=== PATIENT | male | born 1940 | race African-American/Black ===

== ENCOUNTER → 2017-07-06 | Outpatient (CLI) | payer MEDICARE, OTHER ==
[2017-07-06 11:17] LABS: BASO % 0 % (0-3); EOS # 0.3 x10^3/uL (0.0-0.7); EOS % 9 % (0-3); HEMATOCRIT 44.6 % (39.0-53.0); LYMPH # 1.4 x10^3/uL (1.0-4.8); LYMPH % 48 % (24-48); MEAN CORPUSCULAR HEMOGLOBIN 31 pg (25-35); MEAN CORPUSCULAR HGB CONC 34 g/dL (31-37); MEAN CORPUSCULAR VOLUME 93 fL (79-100); MONO # 0.4 x10^3/uL (0.0-1.1); MONO % 12 % (0-9); NEUT # 0.9 x10^3uL (1.8-7.7); NEUT % 31 % (31-73); PLATELET COUNT 161 x10^3/uL (140-400); RED BLOOD COUNT 4.81 x10^6/uL (4.30-5.70); RED CELL DISTRIBUTION WIDTH 13.9 % (11.5-14.5)
[2017-07-06 11:24] LABS: ALBUMIN 3.5 g/dL (3.4-5.0); CREATININE 1.2 mg/dL (0.7-1.3); POTASSIUM 4.7 mmol/L (3.5-5.1); TOTAL BILIRUBIN 1.2 mg/dL (0.2-1.0); TOTAL PROTEIN 7.1 g/dL (6.4-8.2)
[2017-07-06 11:55] LABS: PLT ESTIMATE ADEQUATE (ADEQUATE)
[2017-07-07 03:12] LABS: HEMOGLOBIN A1C 5.6 % (4.8-5.6)
== END | disposition home or self-care (01) ==
LOC: LAB 10:22
PROVIDERS: ATTEND General Practice
DX: Z12.5 Encounter for screening for malignant neoplasm of prostate (principal); E55.9 Vitamin D deficiency, unspecified; R79.89 Other specified abnormal findings of blood chemistry
CPT/HCPCS: 36415; 80053; 80061; 82306; 83036; 85025; G0103

== ENCOUNTER → 2017-08-24 | Outpatient (CLI) | payer MEDICARE, OTHER ==
--- NOTE | 2017-08-24 11:12 | RAD ---
INDICATION: Intermittent right knee pain. TECHNIQUE: 3 views of the right knee are submitted for review. No comparison is available. FINDINGS: There is no fracture or dislocation. There is a small suprapatellar joint effusion. There is no soft tissue swelling. There is tricompartmental spurring which is greatest in the medial compartment. There is narrowing of the medial compartment which is moderate to severe and of the lateral compartment which is moderate. 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 Electronically signed by: Salvador Reed MD (08/24/2017 11:09 AM) [facility]
== END | disposition home or self-care (01) ==
LOC: DXRAD 10:30
PROVIDERS: ATTEND General Practice
DX: M17.11 Unilateral primary osteoarthritis, right knee (principal); M25.461 Effusion, right knee; E55.9 Vitamin D deficiency, unspecified
CPT/HCPCS: 73562

== ENCOUNTER → 2018-08-05 | Outpatient (CLI) | payer MEDICARE, OTHER | END | disposition home or self-care (01) | LOC: LAB 11:00 | PROVIDERS: ATTEND Urology | DX: C61 Malignant neoplasm of prostate (principal) | CPT/HCPCS: 84153; G0103 ==

== ENCOUNTER → 2019-12-26 | Outpatient (CLI) | payer MEDICARE, OTHER ==
--- NOTE | 2019-12-26 09:18 | RAD ---
EXAM: RIGHT UPPER QUADRANT ULTRASOUND. HISTORY: Right upper quadrant pain. COMPARISON: None. FINDINGS: Sonographic evaluation of the right upper quadrant was performed. The liver appears normal in parenchymal echotexture. There are no focal lesions. The gallbladder is unremarkable without evidence of stones, wall thickening or pericholecystic fluid. There is no sonographic Santiago sign. The common duct measures 1.3 mm. The visualized portions of the head of the pancreas reveal no abnormality. The right kidney measures 9.6 cm. Cortical thickness and echogenicity are preserved. There is no hydronephrosis. The visualized portions of the abdominal aorta and inferior vena cava are grossly patent and normal in caliber. IMPRESSION: 1. No cause for pain is identified sonographically. Electronically signed by: Casi Lunsford MD (12/26/2019 9:15 AM) [id number]
== END ==
LOC: US 07:34
PROVIDERS: ATTEND Family Medicine
DX: R10.11 Right upper quadrant pain (principal)
CPT/HCPCS: 76705

== ENCOUNTER 2020-01-25 17:22 | Emergency (ER) | payer MEDICARE, OTHER ==
[~2020-01-25] VITALS: Ht 182.9 cm; Wt 75.0 kg
--- NOTE | 2020-01-25 18:01 | PHYS DOC ---
Past History Past Medical History: Hypertension Past Surgical History: Appendectomy, Tonsillectomy, Other Additional Past Surgical Histo: Prostate Alcohol Use: Rarely General Adult EDM: Chief Complaint: HYPERTENSION HPI: HPI: Patient is a 80 year male presents hypertension. Patient states he was pumping gas and when he got out of his vehicle he felt really dizzy. Patient went home and checked his blood pressure and it was 207/90. Patient denies dizziness at this time. Review of Systems: Review of Systems: Constitutional: Denies fever or chills Eyes: Denies change in visual acuity HENT: Denies nasal congestion or sore throat Respiratory: Denies cough or shortness of breath Cardiovascular: Denies chest pain or edema GI: Denies abdominal pain, nausea, vomiting, bloody stools or diarrhea : Denies dysuria Musculoskeletal: Denies back pain or joint pain Integument: Denies rash Neurologic: Denies headache, focal weakness or sensory changes Endocrine: Denies polyuria or polydipsia Lymphatic: Denies swollen glands Psychiatric: Denies depression or anxiety Physical Exam: PE: Constitutional: Well developed, well nourished, no acute distress, non-toxic appearance. [] HENT: Normocephalic, atraumatic, bilateral external ears normal, oropharynx moist, no oral exudates, nose normal. [] Eyes: PERRLA, EOMI, conjunctiva normal, no discharge. [] Neck: Normal range of motion, no tenderness, supple, no stridor. [] Cardiovascular:Heart rate regular rhythm, no murmur [] Lungs & Thorax: Bilateral breath sounds clear to auscultation [] Abdomen: Bowel sounds normal, soft, no tenderness, no masses, no pulsatile masses. [] Skin: Warm, dry, no erythema, no rash. [] Back: No tenderness, no CVA tenderness. [] Extremities: No tenderness, no cyanosis, no clubbing, ROM intact, no edema. [] Neurologic: Alert and oriented X 3, normal motor function, normal sensory function, no focal deficits noted. [] Psychologic: Affect normal, judgement normal, mood normal. [] Current Patient Data: Vital Signs: Vital Signs Date Time Temp Pulse Resp B/P (MAP) Pulse Ox O2 Delivery O2 Flow Rate FiO2 01/25/20 17:45 97.9 57 16 165/88 (113) 99 Room Air EKG: EKG: Sinus Rhythm, HR 54BPM[] Radiology/Procedures: Radiology/Procedures: []EXAM: Chest, single view. HISTORY: Dizziness. COMPARISON: None. FINDINGS: A frontal view of the chest is obtained. There is no infiltrate, pleural effusion or pneumothorax. There is a prominent cardiac silhouette, likely accentuated due to portable technique. There are calcified granulomas. IMPRESSION: No acute pulmonary finding. Electronically signed by: Yulisa Santiago MD (01/25/2020 6:25 PM) [facility] Heart Score: Risk Factors: Risk Factors: DM, Current or recent (<one month) smoker, HTN, HLP, family history of CAD, obesity. Risk Scores: Score 0 - 3: 2.5% MACE over next 6 weeks - Discharge Home Score 4 - 6: 20.3% MACE over next 6 weeks - Admit for Clinical Observation Score 7 - 10: 72.7% MACE over next 6 weeks - Early Invasive Strategies Course & Med Decision Making: Course & Med Decision Making Pertinent Labs and Imaging studies reviewed. (See chart for details) [] Dragon Disclaimer: Dragon Disclaimer: This electronic medical record was generated, in whole or in part, using a voice recognition dictation system. Departure Departure: Impression: Primary Impression: Hypertension Qualified Codes: I10 - Essential (primary) hypertension Disposition: 01 DC HOME SELF CARE/HOMELESS Condition: GOOD Referrals: GRETEL PEACE MD (PCP) Patient Instructions: Hypertension, [id number] JONO CAMPOS APRN Jan 25, 2020 18:01
--- NOTE | 2020-01-25 18:02 | EKG ---
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
--- NOTE | 2020-01-25 18:27 | RAD ---
EXAM: Chest, single view. HISTORY: Dizziness. COMPARISON: None. FINDINGS: A frontal view of the chest is obtained. There is no infiltrate, pleural effusion or pneumo thorax. There is a prominent cardiac silhouette, likely accentuated due to portable technique. There are calcified granulomas. IMPRESSION: No acute pulmonary finding. Electronically signed by: Yulisa Santiago MD (01/25/2020 6:25 PM) [facility]
[2020-01-25 18:43] LABS: BASO % 0 % (0-3); EOS # 0.2 x10^3/uL (0.0-0.7); EOS % 7 % (0-3); HEMATOCRIT 38.9 % (39.0-53.0); LYMPH # 1.2 x10^3/uL (1.0-4.8); LYMPH % 44 % (24-48); MEAN CORPUSCULAR HEMOGLOBIN 32 pg (25-35); MEAN CORPUSCULAR HGB CONC 33 g/dL (31-37); MEAN CORPUSCULAR VOLUME 94 fL (79-100); MONO # 0.5 x10^3/uL (0.0-1.1); MONO % 17 % (0-9); NEUT # 0.9 x10^3uL (1.8-7.7); NEUT % 31 % (31-73); PLATELET COUNT 176 x10^3/uL (140-400); RED BLOOD COUNT 4.13 x10^6/uL (4.30-5.70); RED CELL DISTRIBUTION WIDTH 13.5 % (11.5-14.5); WHITE BLOOD COUNT 2.8 x10^3/uL (4.0-11.0)
[2020-01-25 18:49] LABS: CREATININE 1.1 mg/dL (0.7-1.3); GFR 77.9; POTASSIUM 4.5 mmol/L (3.5-5.1)
[2020-01-25 18:55] LABS: ALBUMIN 3.3 g/dL (3.4-5.0); ALBUMIN/GLOBULIN RATIO 1.1 (1.0-1.7); TOTAL BILIRUBIN 0.9 mg/dL (0.2-1.0); TOTAL PROTEIN 6.3 g/dL (6.4-8.2)
[2020-01-25 19:28] LABS: % EOS 7 % (0-5); % LYMPHS 46 % (24-48); % MONOS 18 % (0-10); % SEGS 29 % (35-66); PLT ESTIMATE ADEQUATE (ADEQUATE)
[2020-01-25] MEDS ORDERED: IV NORMAL SALINE 1,000ML 1,000 ML IV ONE (19:30)
[2020-01-25 20:05] LABS: BARBITURATES NEG (NEG); BENZODIAZEPINES NEG (NEG); CANNABINOIDS NEG (NEG); COCAINE NEG (NEG); METHADONE NEG (NEG); OPIATES NEG (NEG); PHENCYCLIDINE NEG (NEG)
[2020-01-25 20:07] LABS: AMPHETAMINE/METHAMPHETAMINE NEG (NEG)
[2020-01-25 20:12] LABS: BACTERIA,URINE 0 /HPF (0-FEW); BILIRUBIN,URINE NEG (NEG); CLARITY,URINE CLEAR; COLOR,URINE YELLOW; GLUCOSE,URINE NEG (NEG); NITRITE,URINE NEG (NEG); RBC,URINE 0 /HPF (0-2); UROBILINOGEN,URINE 0.2 mg/dL (0.2 mg/dL); WBC,URINE 0 /HPF (0-4)
[2020-01-25 20:58] VITALS: BP 148/77
== END 2020-01-25 21:11 | disposition home or self-care (01) ==
LOC: ER 17:22
DX: I10 Essential (primary) hypertension (principal); R42 Dizziness and giddiness; Z90.89 Acquired absence of other organs; Z98.890 Other specified postprocedural states
CPT/HCPCS: 36415; 71045; 80053; 80307; 81001; 85007; 85025; 93005; 96360; 99285; J7030

== ENCOUNTER → 2020-02-21 | Outpatient (CLI) | payer MEDICARE, OTHER ==
[2020-01-25 20:58] VITALS: BP 148/77
--- NOTE | 2020-02-22 09:29 | RAD ---
US RENAL ARTERY DUPLEX: 02/21/2020 8:42 AM Indication: 80 years old Male. Essential hypertension Comparison: None. FINDINGS: Sonographic evaluation of the kidneys is performed utilizing grayscale, color Doppler and s pectral waveform analysis. Right kidney: Size: 7.6 x 4.3 x 4.3cm. Collecting System: No hydronephrosis. No renal calculi detected. Parenchyma: Normal echotexture and morphology. No focal contour deforming renal mass. Left kidney: Size: 8.8 x 5.4 x 6.1cm. Collecting System: No hydronephrosis. No renal calculi detected. Parenchyma: Normal echotexture and morphology. No focal contour deforming renal mass. Urinary bladder: Unremarkable. Mid aorta measures 1.5 cm. Aorta peak systolic velocity: 124.5 cm/s Right renal artery: Proximal 63.4 cm/s; middle, 110 cm/s; distal 52.1 cm/s Right renal artery: Resistive indices range from 0.59-0.67 Right renal artery to aorta ratio: 0.79 Left renal artery: Proximal 65.2 cm/s; middle 90.9 cm/s; distal 98.2 cm/s. Left renal artery: Resistive indices range from 0.69-0.72 Left renal artery to aorta ratio: 0.88 Renal veins are patent bilaterally. IMPRESSION: No sonographic evidence for obstructive uropathy. No hemodynamically significant stenosis involving t he renal arteries. Electronically signed by: Lucy Peña MD (02/22/2020 9:26 AM) [id number]
== END ==
LOC: US 08:20
PROVIDERS: ATTEND Family Medicine
DX: I10 Essential (primary) hypertension (principal)
CPT/HCPCS: 93975

== ENCOUNTER 2020-02-23 11:16 | Inpatient (IN) | payer MEDICARE, OTHER ==
[~2020-02-23] VITALS: Ht 182.9 cm; Wt 73.4 kg
--- NOTE | 2020-02-23 11:46 | PHYS DOC ---
Past History Past Medical History: Hypertension Past Surgical History: Appendectomy, Tonsillectomy, Other Additional Past Surgical Histo: Prostate Alcohol Use: Rarely Additional Alcohol Information: 1-2 BEER/WEEK General Adult EDM: Chief Complaint: CHEST PAIN HPI: HPI: 80-year-old gentleman presenting the emergency department today after being seen in clinic and sent here. He had some palpitations last night around 2:00 that lasted for about an hour. His palpitations improved spontaneously. He was seen in clinic today for evaluation. They did an EKG which he brings with him today shows sinus rhythm with a mildly bradycardic rate. He has some ST segment elevation in the anterior leads which is concave upwards reassuring and not suggestive of acute ischemia. Here the patient denies any chest pain. He does have chronic low back pain. Currently he does not have any pain or pressure. HEART SCORE History Slightly suspicious 0 Moderately suspicious +1 Highly suspicious +2 EKG 1 point: No ST depression but LBBB, LVH, repolarization changes (ex: digoxin); 2 points: ST depression/elevation not due to LBBB, LVH, or digoxin Normal 0 Non-specific repolarization disturbance +[address] depression +2 Age <45 0 45-65 +1 65 +2 Risk factors Risk factors: HTN, hypercholesterolemia, DM, obesity (BMI >30 kg/m), smoking (current, or smoking cessation 3 mo), positive family history (parent or sibling with CVD before age 65); atherosclerotic disease: prior AL, PCI/CABG, CVA/TIA, or peripheral arterial disease No known risk factors 0 1-2 risk factors +1 3 risk factors or history of atherosclerotic disease +2 Initial troponin Use local assays and corresponding cutoffs normal limit 0 1-2 normal limit +1 >2 normal limit +2 Total 4 points Review of systems is negative for nausea vomiting diaphoresis fevers chills cough. All other review of systems negative. ED course: 80-year-old male presenting with palpitations last night and then an abnormal EKG in clinic. On arrival EKG obtained here which shows sinus rhythm with a regular rate. ST segments here are congruent. Not suggestive of acute ischemia. Blood test sent. Chest x-ray ordered. Chest x-ray unremarkable. Blood work unremarkable. Troponin within normal limits. Patient remains chest pain-free at this time. Will admit the patient for cardiac monitoring telemetry further evaluation treatment and care including cardiology consultation and possibly an echocardiogram. I spoke to Dr. Tavares who accepts patient for admission. Allergies: Allergies: Allergies Coded Allergies Type Severity Reaction Last Updated Verified No Known Drug Allergies 01/25/20 No Physical Exam: PE: Constitutional: Well developed, well nourished, no acute distress, non-toxic appearance. [] HENT: Normocephalic, atraumatic, bilateral external ears normal, oropharynx moist, no oral exudates, nose normal. [] Eyes: PERRLA, EOMI, conjunctiva normal, no discharge. [] Neck: Normal range of motion, no tenderness, supple, no stridor. [] Cardiovascular: reg rate regular rhythm, no murmur [] Lungs & Thorax: Bilateral breath sounds clear to auscultation [] Abdomen: Bowel sounds normal, soft, no tenderness, no masses, no pulsatile masses. [] Skin: Warm, dry, no erythema, no rash. [] Back: No tenderness, no CVA tenderness. [] Extremities: No tenderness, no cyanosis, no clubbing, ROM intact, no edema. [] Neurologic: Alert and oriented X 3, normal motor function, normal sensory function, no focal deficits noted. [] Psychologic: Affect normal, judgement normal, mood normal. [] Current Patient Data: Vital Signs: Vital Signs Date Time Temp Pulse Resp B/P (MAP) Pulse Ox O2 Delivery O2 Flow Rate FiO2 02/23/20 11:20 98.1 69 15 169/89 (115) EKG: EKG: [] Radiology/Procedures: Radiology/Procedures: [] Heart Score: Risk Factors: Risk Factors: DM, Current or recent (<one month) smoker, HTN, HLP, family history of CAD, obesity. Risk Scores: Score 0 - 3: 2.5% MACE over next 6 weeks - Discharge Home Score 4 - 6: 20.3% MACE over next 6 weeks - Admit for Clinical Observation Score 7 - 10: 72.7% MACE over next 6 weeks - Early Invasive Strategies Course & Med Decision Making: Course & Med Decision Making Pertinent Labs and Imaging studies reviewed. (See chart for details) [] Dragon Disclaimer: Dragon Disclaimer: This electronic medical record was generated, in whole or in part, using a voice recognition dictation system. Departure Departure: Impression: Primary Impression: Palpitations Disposition: ADMITTED INPT THIS HOSP Admitting Physician: Dennise Tavares Condition: STABLE Referrals: GRETEL PEACE MD (PCP) RAHUL ZIMMERMAN MD Feb 23, 2020 11:45
[2020-02-23 12:11] LABS: BASO % 1 % (0-3); EOS # 0.2 x10^3/uL (0.0-0.7); EOS % 6 % (0-3); HEMATOCRIT 42.2 % (39.0-53.0); HEMOGLOBIN 14.2 g/dL (13.0-17.5); LYMPH # 1.2 x10^3/uL (1.0-4.8); LYMPH % 45 % (24-48); MEAN CORPUSCULAR HEMOGLOBIN 31 pg (25-35); MEAN CORPUSCULAR HGB CONC 34 g/dL (31-37); MEAN CORPUSCULAR VOLUME 92 fL (79-100); MONO # 0.5 x10^3/uL (0.0-1.1); MONO % 19 % (0-9); NEUT # 0.8 x10^3uL (1.8-7.7); NEUT % 29 % (31-73); PLATELET COUNT 199 x10^3/uL (140-400); RED BLOOD COUNT 4.58 x10^6/uL (4.30-5.70); RED CELL DISTRIBUTION WIDTH 13.3 % (11.5-14.5); WHITE BLOOD COUNT 2.7 x10^3/uL (4.0-11.0)
--- NOTE | 2020-02-23 12:16 | RAD ---
XR CHEST 1V Clinical Indication: Reason: chest pain / Spl. Instructions: / History: Comparison: AP chest, January 25, 2020. Findings: The cardiomediastinal silhouette is normal. Lungs are clear. There is no pneumothorax. No pleural eff usion is appreciated. No acute bone abnormality. IMPRESSION: No acute cardiopulmonary process. Electronically signed by: Roni Langley MD (02/23/2020 12:14 PM) [id number]
[2020-02-23 12:23] LABS: CALCIUM 9.2 mg/dL (8.5-10.1); POTASSIUM 4.3 mmol/L (3.5-5.1)
[2020-02-23 12:28] LABS: ALBUMIN 3.3 g/dL (3.4-5.0); DIRECT BILIRUBIN 0.2 mg/dL (0.0-0.2); TOTAL BILIRUBIN 0.7 mg/dL (0.2-1.0); TOTAL PROTEIN 6.7 g/dL (6.4-8.2)
[2020-02-23] MEDS ORDERED: IV NORMAL SALINE 1,000ML 1,000 ML IV SCH (13:00)
--- NOTE | 2020-02-23 14:40 | EKG ---
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
[2020-02-23 15:10] VITALS: BP 136/82
--- NOTE | 2020-02-23 15:37 | NUR ---
ADMIT NOTE-PT ARRIVES VIA EMS WITH NO O2 OR NEED FOR DEVICE. HE AMBULATES FROM COT IN HALLWAY TO BED IN ROOM UNASSISTED. VSS, TELEMETRY APPLIED. HISTORY OBTAINED. PT DENIES ANY HOME MEDICATIONS, NO KNOWN ALLERGIES AT THIS TIME.
--- NOTE | 2020-02-23 16:00 | HP ---
ADMIT DATE: 02/23/2020 HISTORY OF PRESENT ILLNESS: The patient is an 80-year-old -[place] male patient who was seen in the Emergency Department after being seen in the clinic by his primary care physician. He had some palpitations last night around 2:00 that lasted for almost an hour. His palpitations improved spontaneously. He was seen in the clinic today for evaluation and had had an EKG done, which showed that he has ST segment elevation that showed that he is mildly bradycardic. He has some ST segment elevation in the anterior leads, which is concave, upward, reassuring not suggestive of acute ischemia. He denied any chest pain. He does have chronic low back pain; however, by the time he arrived to the Emergency Room, he has no palpitation, no chest pain or pressure or shortness of breath. He was evaluated in the Emergency Room, has another EKG done and again has had lab work done, which showed that he has first set of cardiac enzyme was less than 0.017 and was admitted for further evaluation and treatment. PAST MEDICAL HISTORY: Significant for hypertension, hyperlipidemia and prostate cancer. PAST SURGICAL HISTORY: Significant for colonoscopy. ALLERGIES: No known drug allergies. MEDICATIONS: He is currently on no medication. FAMILY HISTORY: He has 2 brothers, all younger and apparently healthy. His father at the age of 95 because of bladder cancer. Mother at the age of 95 because of diabetes and congestive heart failure. SOCIAL HISTORY: He is . He has 2 boys and 1 daughter. He quit smoking 40 years ago. Does drink alcohol, 2 beers a week and a shot of whiskey on the weekend. Does not use any illicit drugs. 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 He is a . REVIEW OF SYSTEMS: The patient denied any blurring of vision, cataract, glaucoma or macular degeneration. Denied any earache, tinnitus or sensorineural deafness. Denied any nosebleeds, stuffy nose or postnasal drip. Denied any sore throat, sore tongue, toothache, hoarseness of voice or difficulty swallowing. Denied any nausea, vomiting, diarrhea or constipation. Denied any hematemesis, melena, or hematochezia. Did complain of nocturia, but denied any dysuria or hematuria. Denied any chest pain. Did complain of palpitations. According to him, this palpitation has been on and off for years, but was the longest. PHYSICAL EXAMINATION: GENERAL: On arrival to the Emergency Room, he looked well and was in no apparent distress. His palpitations have subsided. Has no chest pain or shortness of breath. On examining him, there was no pallor, jaundice, cyanosis or thyromegaly. No jugular venous distention. No lower limb edema. VITAL SIGNS: His heart rate was 74, blood pressure was 136/82, temperature was 98.8, respiratory rate was 20, and oxygen saturation was 94%. HEAD, EYES, EARS, NOSE AND THROAT: Normocephalic, atraumatic. NECK: Supple. HEART: Showed normal first and second heart sounds. No gallop or murmur. CHEST: Clear to auscultation. No crepitation or rhonchi. ABDOMEN: Distended, soft, nontender. NEUROLOGIC: He was grossly intact. LABORATORY DATA: Showed a white cell count of 2700, hemoglobin 14, hematocrit 42, MCV 92, and a platelet count of 199,000 with a manual differential showed 29% polymorphs, 45% lymphocytes, and 19% monocytes. His serum sodium was 130, potassium 4.3, chloride 97, bicarbonate 27, anion gap of 6, BUN 14, creatinine 1, estimated GFR was 87 mL per minute. His glucose was 97, calcium was 9.2, magnesium was 1.9. Total bilirubin, AST, ALT, alkaline phosphatase were normal. Total protein 6.7, albumin 3.3 and first set of troponin was less than 0.017. ASSESSMENT AND PLAN: The patient will be monitored on a telemetry bed. We will do 2 more sets of cardiac enzyme. We will check his thyroid function test and consult Cardiology team to evaluate further. JIGNESH MESSER MD DR: KATRINA/alessio JOB#: [id number] / [id number]
[2020-02-23 17:03] VITALS: BP 151/74
[2020-02-23 23:56] VITALS: BP 138/74
[2020-02-24 05:56] VITALS: BP 127/68
[2020-02-24 07:13] LABS: BASO % 1 % (0-3); CALCIUM 8.7 mg/dL (8.5-10.1); EOS # 0.2 x10^3/uL (0.0-0.7); EOS % 8 % (0-3); LYMPH # 1.4 x10^3/uL (1.0-4.8); LYMPH % 49 % (24-48); MEAN CORPUSCULAR HEMOGLOBIN 31 pg (25-35); MEAN CORPUSCULAR HGB CONC 33 g/dL (31-37); MEAN CORPUSCULAR VOLUME 93 fL (79-100); MONO # 0.4 x10^3/uL (0.0-1.1); MONO % 16 % (0-9); NEUT # 0.7 x10^3uL (1.8-7.7); NEUT % 27 % (31-73); PLATELET COUNT 194 x10^3/uL (140-400); POTASSIUM 4.2 mmol/L (3.5-5.1); RED BLOOD COUNT 4.53 x10^6/uL (4.30-5.70); RED CELL DISTRIBUTION WIDTH 13.5 % (11.5-14.5); WHITE BLOOD COUNT 2.8 x10^3/uL (4.0-11.0)
[2020-02-24 08:02] LABS: % EOS 8 % (0-5); % LYMPHS 50 % (24-48); % MONOS 14 % (0-10); % SEGS 28 % (35-66)
[2020-02-24 08:03] LABS: PLT ESTIMATE ADEQUATE (ADEQUATE)
[2020-02-24 10:57] VITALS: BP 137/77
[2020-02-24 12:11] LABS: THYROID STIM HORMONE (TSH) 2.005 uIU/mL (0.358-3.740)
--- NOTE | 2020-02-24 12:51 | DS ---
DATE OF DISCHARGE: 02/24/2020 HOSPITAL COURSE: The patient is an 80-year-old male patient who was admitted with complaint of palpitations and apparently, he was awakened around 2:00 in the morning and palpitations episode lasted for almost an hour. He was seen at his primary care physician from there, he was referred to [facility] Emergency Room, where he was extensively investigated and has had EKG showed no abnormality. He was monitored on a telemetry bed and has had 3 sets of cardiac enzymes, all showed troponin to be less than 0.017 and acute myocardial infarction was ruled out. His thyroid function test was normal at 2.005. Serum triglycerides were 36, total cholesterol 207, LDL cholesterol 111, VLDL was 17, HDL cholesterol was 89 and the ratio was 2. PHYSICAL EXAMINATION: GENERAL: When I saw him this afternoon, he looked well and was clearly in no apparent distress. He denied any further episodes of palpitations. No arrhythmias were seen on the monitor and the patient remained chest pain free. Denied any shortness of breath. When I examined him, he looked well and was clearly in no apparent respiratory distress. No pallor, jaundice, cyanosis or thyromegaly. No jugular venous distention or limb edema. VITAL SIGNS: Her heart rate was 70, blood pressure was 137/77, temperature was 97.7, respiratory rate 20, and oxygen saturation was 100% on room air. HEAD, EYES, EARS, NOSE AND THROAT: Showed normocephalic, atraumatic. NECK: Supple. HEART: Showed normal first and second heart sounds. No gallop, rub or murmur. CHEST: Clear to auscultation. No crepitation or rhonchi. ABDOMEN: Distended, soft, nontender. NEUROLOGIC: He was grossly intact. DISCHARGE MEDICATIONS: The patient was discharged home with a plan for him to have an outpatient echocardiogram and a quality assurance monitor body as an outpatient. FINAL DISCHARGE DIAGNOSES: 1. Palpitations. 2. Hypertension. JIGNESH MESSER MD DR: KATRINA/alessio JOB#: [id number] / [id number]
--- NOTE | 2020-02-24 15:43 | PDOC2 ---
CONSULT DOS: DATE: 02/24/20 TIME: 15:36 Reason for Consult: Palpitations Referring Physician: Dr. Tavares Chief Complaint Palpitations Source: Chart review, Patient Problem List Problems Medical Problems: (1) Palpitations Status: Acute History of Present Illness 80-year-old male was initially seen by PCP secondary to intermittent episodes of palpitations and was sent to ED for an abnormal EKG that showed questionable ST elevations. Patient stated that his palpitations have been going on since past 1 year. They usually last a few seconds to minutes. However, since the last few weeks, they have been more frequent and being lasting for an hour. His symptoms are worse during the night. He denied any chest pain, orthopnea/PND, syncope. He denied any excessive caffeine or energy drinks intake. Past Medical History Hypertension Hyperlipidemia Prostate cancer Past Surgical History Colonoscopy Family History Negative for premature coronary disease Social History Patient admitted to social intake of alcohol but denied any smoking or drug abuse. Current Medications Current Medications Sodium Chloride 1,000 ml @ 85 mls/hr [id number] IV Last administered on 02/23/20at 13:17; Start 02/23/20 at 13:00; Stop 02/23/20 at 16:59; Status DC Active Scripts Active No Active Prescriptions or Reported Medications Allergies: Coded Allergies: No Known Drug Allergies (Unverified , 01/25/20) PSYCHOLOGICAL ROS: No: Hallucinations Eyes: No: Loss of vision HEENT: No: Epistaxis Respiratory: No: Hemoptysis, Shortness of breath Cardiovascular: yes: Palpitations; No: Chest Pain Gastrointestinal: No: Vomiting Neurological: No: Seizures Skin: No: Rash General: Alert, Oriented X3 HEENT: Atraumatic Lungs: Clear to auscultation Heart: Regular rate Abdomen: Normal bowel sounds, Soft Extremities: No edema Neuro: Normal speech Psych/Mental Status: Mood NL VITALS Vital Signs Date Time Temp Pulse Resp B/P (MAP) Pulse Ox O2 Delivery O2 Flow Rate FiO2 02/24/20 10:57 97.7 70 20 137/77 (97) 100 Room Air Labs Laboratory Tests Test 02/23/20 11:42 02/23/20 15:05 02/23/20 17:45 02/24/20 06:25 White Blood Count 2.7 x10^3/uL (4.0-11.0) 2.8 x10^3/uL (4.0-11.0) Red Blood Count 4.58 x10^6/uL (4.30-5.70) 4.53 x10^6/uL (4.30-5.70) Hemoglobin 14.2 g/dL (13.0-17.5) 14.0 g/dL (13.0-17.5) Hematocrit 42.2 % (39.0-53.0) 42.0 % (39.0-53.0) Mean Corpuscular Volume 92 fL (79-100) 93 fL (79-100) Mean Corpuscular Hemoglobin 31 pg (25-35) 31 pg (25-35) Mean Corpuscular Hemoglobin Concent 34 g/dL (31-37) 33 g/dL (31-37) Red Cell Distribution Width 13.3 % (11.5-14.5) 13.5 % (11.5-14.5) Platelet Count 199 x10^3/uL (140-400) 194 x10^3/uL (140-400) Neutrophils (%) (Auto) 29 % (31-73) 27 % (31-73) Lymphocytes (%) (Auto) 45 % (24-48) 49 % (24-48) Monocytes (%) (Auto) 19 % (0-9) 16 % (0-9) Eosinophils (%) (Auto) 6 % (0-3) 8 % (0-3) Basophils (%) (Auto) 1 % (0-3) 1 % (0-3) Neutrophils # (Auto) 0.8 x10^3uL (1.8-7.7) 0.7 x10^3uL (1.8-7.7) Lymphocytes # (Auto) 1.2 x10^3/uL (1.0-4.8) 1.4 x10^3/uL (1.0-4.8) Monocytes # (Auto) 0.5 x10^3/uL (0.0-1.1) 0.4 x10^3/uL (0.0-1.1) Eosinophils # (Auto) 0.2 x10^3/uL (0.0-0.7) 0.2 x10^3/uL (0.0-0.7) Basophils # (Auto) 0.0 x10^3/uL (0.0-0.2) 0.0 x10^3/uL (0.0-0.2) Sodium Level 130 mmol/L (136-145) 134 mmol/L (136-145) Potassium Level 4.3 mmol/L (3.5-5.1) 4.2 mmol/L (3.5-5.1) Chloride Level 97 mmol/L (98-107) 99 mmol/L (98-107) Carbon Dioxide Level 27 mmol/L (21-32) 25 mmol/L (21-32) Anion Gap 6 (6-14) 10 (6-14) Blood Urea Nitrogen 14 mg/dL (8-26) 11 mg/dL (8-26) Creatinine 1.0 mg/dL (0.7-1.3) 1.0 mg/dL (0.7-1.3) Estimated GFR (Cockcroft-Gault) 87.0 87.0 Glucose Level 97 mg/dL (70-99) 95 mg/dL (70-99) Calcium Level 9.2 mg/dL (8.5-10.1) 8.7 mg/dL (8.5-10.1) Magnesium Level 1.9 mg/dL (1.8-2.4) Total Bilirubin 0.7 mg/dL (0.2-1.0) Direct Bilirubin 0.2 mg/dL (0.0-0.2) Aspartate Amino Transf (AST/SGOT) 25 U/L (15-37) Alanine Aminotransferase (ALT/SGPT) 28 U/L (16-63) Alkaline Phosphatase 104 U/L (46-116) Troponin I Quantitative < 0.017 ng/mL (0-0.055) < 0.017 ng/mL (0-0.055) < 0.017 ng/mL (0-0.055) Total Protein 6.7 g/dL (6.4-8.2) Albumin 3.3 g/dL (3.4-5.0) Lipase 112 U/L (73-393) Segmented Neutrophils % 28 % (35-66) Lymphocytes % 50 % (24-48) Monocytes % 14 % (0-10) Eosinophils % 8 % (0-5) Platelet Estimate Adequate (ADEQUATE) Triglycerides Level 36 mg/dL (0-150) Cholesterol Level 207 mg/dL (0-200) LDL Cholesterol, Calculated 111 mg/dL (0-100) VLDL Cholesterol, Calculated 7 mg/dL (0-40) Non-HDL Cholesterol Calculated 118 mg/dL (0-129) HDL Cholesterol 89 mg/dL (40-60) Cholesterol/HDL Ratio 2.0 Thyroid Stimulating Hormone (TSH) 2.005 uIU/mL (0.358-3.740) Assessment/Plan 1. Palpitations: EKG showed sinus rhythm with J-point elevations anterior leads. Cardiac enzymes negative. Telemetry showed 1 brief episode of atrial tachycardia without any other arrhythmias. Plan for outpatient 2D echo to assess LV systolic function and event monitor recording to rule out any significant arrhythmias. 2. Hypertension: Controlled Thank you for your consultation. GODWIN THOMPSON MD Feb 24, 2020 15:43
== END 2020-02-24 13:03 | disposition home or self-care (01) | DRG 309 ==
LOC: ER 11:16 → 1 SOUTH 12:30
PROVIDERS: ADMIT Internal Medicine; ATTEND Internal Medicine
DX: R00.2 Palpitations (principal); I47.1 Supraventricular tachycardia; E78.5 Hyperlipidemia, unspecified; G89.29 Other chronic pain; I10 Essential (primary) hypertension; Z80.52 Family history of malignant neoplasm of bladder; Z82.49 Family history of ischemic heart disease and other diseases of the circulatory system; Z83.3 Family history of diabetes mellitus; Z85.46 Personal history of malignant neoplasm of prostate; Z87.891 Personal history of nicotine dependence; Z90.49 Acquired absence of other specified parts of digestive tract
CPT/HCPCS: 36415; 71045; 80048; 80061; 80076; 83690; 83735; 84443; 84484; 85007; 85025; 93005; 93975; 96360; 99285-25; J7030

== ENCOUNTER 2020-03-08 14:51 | Emergency (ER) | payer MEDICARE, OTHER ==
[~2020-03-08] VITALS: Ht 182.9 cm; Wt 73.4 kg
[2020-03-08 15:42] VITALS: BP 150/77
--- NOTE | 2020-03-08 15:58 | PHYS DOC ---
Past History Past Medical History: Hypertension Past Surgical History: Appendectomy, Tonsillectomy, Other Additional Past Surgical Histo: Prostate Alcohol Use: Rarely Adult General Chief Complaint Chief Complaint: HYPERTENSION HPI HPI Patient is a 80-year-old male presents to the emergency department complaining of a high blood pressure at home. Patient states that he had a nosebleed that lasted a few minutes and was relieved after holding pressure on his nose, patient states he took his blood pressure and noticed it was 189/81, thought that was too high and came straight to the emergency department for an evaluation. Patient denies chest pains, denies shortness of breath, denies chest palpitations, denies cough, fever or chills. Patient denies any headaches, denies visual changes, denies neurological problems, denies dizziness, denies syncope or syncopal or near syncopal episodes. Patient denies any other physical complaints or physical symptoms. Review of Systems Review of Systems 14 body systems of review of systems have been reviewed. See HPI for pertinent positives and negative responses, otherwise all other systems are negative, nonpertinent or noncontributory. Allergies Allergies Allergies Coded Allergies Type Severity Reaction Last Updated Verified No Known Drug Allergies 01/25/20 No Physical Exam Physical Exam Constitutional: Well developed, well nourished, no acute distress, non-toxic appearance. HENT: Normocephalic, atraumatic, bilateral external ears normal, oropharynx moist, no oral exudates, nose normal. Bilateral nasal turbinates without erythema, no dried blood appreciated, no swelling or edema appreciated. No nasal congestion appreciated. Eyes: PERRLA, EOMI, conjunctiva normal, no discharge. Neck: Normal range of motion, no tenderness, supple, no stridor. Cardiovascular:Heart rate regular rhythm, no murmur Lungs & Thorax: Bilateral breath sounds clear to auscultation Abdomen: Bowel sounds normal, soft, no tenderness, no masses, no pulsatile masses. Skin: Warm, dry, no erythema, no rash. Back: No tenderness, no CVA tenderness. Extremities: No tenderness, no cyanosis, no clubbing, ROM intact, no edema. Neurologic: Alert and oriented X 3, normal motor function, normal sensory function, no focal deficits noted. Psychologic: Affect normal, judgement normal, mood normal. Current Patient Data Vital Signs Vital Signs Date Time Temp Pulse Resp B/P (MAP) Pulse Ox O2 Delivery O2 Flow Rate FiO2 03/08/20 15:42 97.9 52 16 150/77 (101) 98 Room Air EKG EKG [] Radiology/Procedures Radiology/Procedures [] Heart Score Risk Factors: Risk Factors: DM, Current or recent (<one month) smoker, HTN, HLP, family history of CAD, obesity. Risk Scores: Risk Factors: DM, Current or recent (<one month) smoker, HTN, HLP, family history of CAD, obesity. Course & Med Decision Making Course & Med Decision Making Pertinent Labs and Imaging studies reviewed. (See chart for details) 80-year-old male, vital signs reviewed, presents emergency department with worries that he might have high blood pressure. Patient's vital signs stable, blood pressure right upper extremity was 150/77. Discussed with patient need to take serial blood pressures for the next week and follow-up with his primary care Dr. Peace with his serial blood pressure documentation in hand so that Dr. Peace could make a informed decision whether to start on blood pressure medications or not. Patient gave verbal understanding of blood pressure documentation need, follow-up with primary care soon, return to ER precautions and concerns. Patient discharged home without incident. Dragon Disclaimer Dragon Disclaimer This electronic medical record was generated, in whole or in part, using a voice recognition dictation system. Departure Departure: Impression: Primary Impression: Physically well but worried Disposition: 01 DC HOME SELF CARE/HOMELESS Condition: GOOD Referrals: GRETEL PEACE MD (PCP) Additional Instructions: Please keep a detailed log of your blood pressures as we discussed, make an appointment within a week to see Dr. Peace so that you and he may review your blood pressures and discuss starting on blood pressure medications. Please return to the emergency department for worsening symptoms or other concerns. EMERGENCY DEPARTMENT GENERAL DISCHARGE INSTRUCTIONS Thank you for coming to [facility] (ED) today and trusting us with you care. We trust that you had a positivie experience in our Emergency Department. If you wish to speak to the department management, you may call the director at [phone]. YOUR FOLLOW UP INSTRUCTIONS ARE FOLLOWS: 1. Do you have a private Doctor? If you do not have a private doctor, please ask for a resource list of physicians or clinics that may be able to assist you with follow up care. 2. The Emergency Physician has interpreted your x-rays. The X-Ray specialist will also review them. If there is a change in the findings, you will be notified in 48 hours when at all possible. 3. A lab test or culture has been done, your results will be reviewed and you will be notified if you need a change in treatment. ADDITIONAL INSTRUCTIONS AND INFORMATION: 1. Your care today has been supervised by a physician who is specially trained in emergency care. Many problems require more than one evaluation for a complete diagnosis and treatment. We recommend that you schedule your follow up appointment as recommended to ensure complete treatment of you illness or injury. If you are unable to obtain follow up care and continue to have a problem, or if your condition worsens, we recommend that you return to the ED. 2. We are not able to safely determine your condition over the phone nor are we able to give sound medical advice over the phone. For these safety reasons, if you call for medical advice we will ask you to come to the ED for further evaluation. 3. If you have any questions regarding these discharge instructions please call the ED at [phone]. SAFETY INFORMATION: In the interest of safety, wellness, and injury prevention; we encourage you to wear your sealbelt, if you smoke; quite smoking, and we encourage family to use a protective helmet for bicycling and other sporting events that present an increased risk for head injury. IF YOUR SYMPTOMS WORSEN OR NEW SYMPTOMS DEVELOP, OR YOU HAVE CONCERNS ABOUT YOUR CONDITION; OR IF YOUR CONDITION WORSENS WHILE YOU ARE WAITING FOR YOUR FOLLOW UP APPOINTMENT; EITHER CONTACT YOUR PRIMARY CARE DOCTOR, THE PHYSICIAN WHOSE NAME AND NUMBER YOU WERE GIVEN, OR RETURN TO THE ED IMMEDIATELY. Scripts No Active Prescriptions or Reported Meds TEZ ADAIR APRN Mar 08, 2020 15:58
== END 2020-03-08 16:10 | disposition home or self-care (01) ==
LOC: ER 14:51
DX: Z00.00 Encounter for general adult medical examination without abnormal findings (principal); I10 Essential (primary) hypertension; R04.0 Epistaxis
CPT/HCPCS: 99281

== ENCOUNTER → 2020-03-08 | Outpatient (CLI) | payer MEDICARE, OTHER ==
[2020-02-24 10:57] VITALS: BP 137/77
--- NOTE | 2020-03-08 14:48 | RAD ---
Bilateral carotid artery duplex ultrasound study without comparison for occlusion and stenosis of the bilateral carotid arteries, hypertension spikes. Dizziness and lightheadedness, unusual headaches. Technique and findings: Real-time grayscale and color and spectral Doppler evaluation of the carotid arteries is performed. The right common carotid artery is notable for diffuse intimal thickening with out jason atherosclerosis. Peak systolic velocity is elevated in the mid segment of 162 cm/s. Peak sy stolic velocity of the distal common carotid artery is 125 cm per second. The right internal carotid artery is notable for very mild calcified atherosclerosis, with peak systolic velocity distally 142 c m/s, constituting a ratio of 1.1. Highest end-diastolic velocity of the internal carotid artery on th e right is 30 cm per second. On the left, once again there is diffuse mild thickening of the common c arotid artery without discrete atherosclerosis, and with a peak systolic velocity proximally 151 cm/s , and a peak systolic velocity distally 124 seen per second. Highest peak systolic velocity of the in ternal carotid artery is seen distally 131 cm/s, constituting a ratio of 1.0. Highest end-diastolic v elocity in the left internal carotid artery is also distal at 35 seen per second. There is antegrade flow within the vertebral arteries bilaterally. No significant atherosclerosis on grayscale imaging. IMPRESSION: 1. Less than 50 percent stenosis of the right internal carotid artery, with only mild calcified ather osclerosis identified. The elevated peak systolic velocities within the internal carotid arteries is an unreliable indicator stenosis in the setting of elevated common carotid artery velocities. This is likely physiologic. Stenosis calculations for CT, MR and conventional angiography are based upon measurement of the dista l ICA diameter in accordance with the NASCET methodology. Stenosis calculations for carotid ultrasou nd studies are derived from validated velocity criteria which are known to correlate with the NASCET methodology. Electronically signed by: Alan Clemente MD (03/08/2020 2:46 PM) [id number]
== END ==
LOC: US 12:30
PROVIDERS: ATTEND Family Medicine
DX: I65.21 Occlusion and stenosis of right carotid artery (principal); I10 Essential (primary) hypertension; R51.9 Headache, unspecified
CPT/HCPCS: 93880

== ENCOUNTER → 2020-04-02 | Outpatient (CLI) | payer MEDICARE, OTHER ==
[2020-03-08 15:42] VITALS: BP 150/77
--- NOTE | 2020-04-02 11:13 | CARD ---
MR#: [id number] Date of Study: 04/02/2020 Ordering Physician: GODWIN THOMPSON, Referring Physician: GODWIN THOMPSON, Tech: Dolores Cannon RDCS APPROVED REPORT EXAM: Two-dimensional and M-mode echocardiogram with Doppler and color Doppler. Other Information Quality : Good INDICATION Palpitations 2D DIMENSIONS RVDd3.1 (2.9-3.5cm)Left Atrium(2D)3.5 (1.6-4.0cm) IVSd1.0 (0.7-1.1cm)Aortic Root(2D)2.8 (2.0-3.7cm) LVDd4.1 (3.9-5.9cm)LVOT Diameter2.0 (1.8-2.4cm) PWd1.1 (0.7-1.1cm)LVDs1.9 (2.5-4.0cm) FS (%) 30.0 %SV63.3 ml LVEF(%)60.0 (>50%) Aortic Valve AoV Peak J Luis.124.0cm/sAoV VTI28.6cm AO Peak GR.6.1mmHgLVOT Peak J Luis.110.3cm/s LVOT VTI 27.88cmAO Mean GR.4mmHg YUAN (VMAX)2.83ef7YSY (VTI)3.05cm2 Mitral Valve MV E Lfikshww25.7cm/sMV DECEL [id number] MV A Bbuvhenq993.5cm/sE/A Ratio0.8 Tricuspid Valve TR P. Vupdjyzm544et/sRAP WMJEIHSQ3hwBh TR Peak Gr.93teLxUBVT04wcOh Pulmonary Vein S1 Xbcyyfmu32.9cm/sD2 Eqyygxko57.2cm/s LEFT VENTRICLE The left ventricle is normal size. There is normal left ventricular wall thickness. The left ventricu lar systolic function is normal and the ejection fraction is within normal range. The Ejection Fracti on is 55-60%. There is normal LV segmental wall motion. Transmitral Doppler flow pattern is Grade I-a bnormal relaxation pattern. RIGHT VENTRICLE The right ventricle is normal size. The right ventricular systolic function is normal. ATRIA The left atrium size is normal. The right atrium size is normal. The interatrial septum is intact wit h no evidence for an atrial septal defect or patent foramen ovale as noted on 2-D or Doppler imaging. AORTIC VALVE The aortic valve is calcified but opens well. Doppler and Color Flow revealed trace aortic regurgitat ion. There is no significant aortic valvular stenosis. MITRAL VALVE The mitral valve is calcified but opens well. Mitral annular calcification is mild. There is no evide nce of mitral valve prolapse. There is no mitral valve stenosis. Doppler and Color-flow revealed trac e to mild mitral regurgitation. TRICUSPID VALVE The tricuspid valve is normal in structure and function. Doppler and Color Flow revealed mild tricusp id regurgitation. The PA pressure was estimated at 36 mmHg. There is no tricuspid valve stenosis. PULMONIC VALVE The pulmonic valve is not well visualized. Doppler and Color Flow revealed mild to moderate pulmonic valvular regurgitation. There is no pulmonic valvular stenosis. GREAT VESSELS The aortic root is normal in size. The ascending aorta is normal in size. The IVC is normal in size a nd collapses >50% with inspiration. PERICARDIAL EFFUSION There is no evidence of significant pericardial effusion. Critical Notification Critical Value: No <Conclusion> The left ventricular systolic function is normal and the ejection fraction is within normal range. Th e Ejection Fraction is 55-60%. There is normal LV segmental wall motion. Doppler and Color Flow revealed mild tricuspid regurgitation. The PA pressure was estimated at 36 mmH g. Doppler and Color Flow revealed mild to moderate pulmonic valvular regurgitation. Signed by : Joey Sosa, Electronically Approved : 04/02/2020 11:12:51
== END ==
LOC: ECHO 07:38
PROVIDERS: ATTEND Internal Medicine Cardiovascular Disease
DX: I08.8 Other rheumatic multiple valve diseases (principal)
CPT/HCPCS: 93306